=== PATIENT | male | born 1945 | race Caucasian/White ===

== ENCOUNTER 2021-03-26 13:15 | Emergency (ER) | payer MEDICARE, BC ==
[~2021-03-26] VITALS: Ht 180.3 cm; Wt 89.8 kg
[2021-03-26] MEDS ORDERED: LISINOPRIL-HCT1 EACH PO (13:23)
[2021-03-26] MEDS ORDERED: HYDROCODON-ACE1 EA11 PO (15:01)
== END 2021-03-26 15:15 | disposition home or self-care (01) ==
LOC: ED 13:15
DX: S22.42XA Multiple fractures of ribs, left side, initial encounter for closed fracture (principal); W01.10XA Fall on same level from slipping, tripping and stumbling with subsequent striking against unspecified object, initial encounter; Z87.891 Personal history of nicotine dependence; Z88.5 Allergy status to narcotic agent; Z79.899 Other long term (current) drug therapy
CPT/HCPCS: 71101; 99283-25

== ENCOUNTER 2021-06-21 07:10 | Emergency (ER) | payer MEDICARE ==
[~2021-06-21] VITALS: Ht 180.3 cm; Wt 87.1 kg
[~2021-06-21 07:10] MED LIST: HYDROCODON-ACE1 EA11 PO; LISINOPRIL-HCT1 EACH PO
[2021-06-21] MEDS ORDERED: ONDANSETRON ODT8 MG PO (08:01)
[2021-06-21] MEDS ORDERED: LOMOTIL TABLET1 EACH PO (08:01)
== END 2021-06-21 08:15 | disposition home or self-care (01) ==
LOC: ED 07:10
DX: K52.9 Noninfective gastroenteritis and colitis, unspecified (principal); Z20.822 Contact with and (suspected) exposure to COVID-19; I10 Essential (primary) hypertension; Z87.891 Personal history of nicotine dependence; Z88.5 Allergy status to narcotic agent; Z79.899 Other long term (current) drug therapy
CPT/HCPCS: 99283; U0003

== ENCOUNTER 2022-12-15 12:04 | Emergency (ER) | payer OTHER, MEDICARE ==
[~2022-12-15] VITALS: Ht 180.3 cm; Wt 82.5 kg
[~2022-12-15 12:04] MED LIST changes: +LOMOTIL TABLET1 EACH PO; +ONDANSETRON ODT8 MG PO
[2022-12-15] MEDS ORDERED: HYDROCODON-ACE1 EA11 PO (13:40)
== END 2022-12-15 14:12 | disposition home or self-care (01) ==
LOC: ED 12:04
DX: S22.32XA Fracture of one rib, left side, initial encounter for closed fracture (principal); S01.111A Laceration without foreign body of right eyelid and periocular area, initial encounter; I10 Essential (primary) hypertension; Z87.891 Personal history of nicotine dependence; Z88.5 Allergy status to narcotic agent; Z79.899 Other long term (current) drug therapy; W10.8XXA Fall (on) (from) other stairs and steps, initial encounter
CPT/HCPCS: 12013; 71101; 99283-25; A9270

== ENCOUNTER 2023-06-26 19:59 | Emergency (ER) | payer MEDICARE ==
[~2023-06-26] VITALS: Ht 180.3 cm; Wt 86.2 kg
--- OUTSIDE RECORDS SUMMARY | ~2023-06-26 | XMS | Continuity of Care Document ---
Demographics + + + | Address | [address] | | | [place] [address] | + + + | Preferred Language | Unknown | + + + | Marital Status | | + + + | Mormon Affiliation | Unknown | + + + | Race | White | + + + | Ethnic Group | Not or | + + + Author + + + | Author | [facility] | + + + | Organization | [facility] | + + + | Address | [address] | | | [place] [address] | + + + | Phone | | + + + Care Team Providers + + + + | Care Operating Room Aide Name | Role | Phone | + + + + Unavailable | Unavailable | + + + + Unavailable | Unavailable | + + + + Unavailable | Unavailable | + + + + Allergies and Intolerances + + + + + + | date | description | facility | reaction | severity | + + + + + + | (no date) | Mild | [facility] | (no reaction) | (no severity) | | | | [facility] | | | + + + + + + | (no date) | Codeine | [facility] | (no reaction) | (no severity) | | | | [facility] | | | + + + + + + | (no date) | Codeine | [facility] | (no reaction) | (no severity) | | | | [facility] | | | + + + + + + | (no date) | Itching | [facility] | (no reaction) | (no severity) | | | | [facility] | | | + + + + + + | (no date) | Codeine | [facility] | (no reaction) | (no severity) | | | | [facility] | | | + + + + + + Encounters No information. Functional Status No information. Immunizations No information. Medications + + + + | date | description | facility | + + + + | 2021-06-21 00:00 | DIPHENOXYLATE HCL/ATROPINE | [facility] | | | | | + + + + | 2021-06-21 00:00 | DIPHENOXYLATE HCL/ATROPINE | [facility] | | | | | + + + + | 2022-12-15 00:00 | | [facility] | | | LISINOPRIL/HYDROCHLOROTHIAZ | | | | MANDEEP | | + + + + | 2022-12-22 00:00 | | [facility] | | | LISINOPRIL/HYDROCHLOROTHIAZ | | | | MANDEEP | | + + + + | 2021-06-21 00:00 | ONDANSETRON | [facility] | + + + + | 2021-06-21 00:00 | ONDANSETRON | [facility] | + + + + | 2021-03-26 00:00 | HYDROCODONE | [facility] | | | BIT/ACETAMINOPHEN | | + + + + | 2021-03-26 00:00 | HYDROCODONE | [facility] | | | BIT/ACETAMINOPHEN | | + + + + | 2022-12-15 00:00 | HYDROCODONE | [facility] | | | BIT/ACETAMINOPHEN | | + + + + | 2022-12-15 00:00 | HYDROCODONE | [facility] | | | BIT/ACETAMINOPHEN | | + + + + Problems + + + + | date | description | facility | + + + + | 2021-06-21 00:00 | Acute gastroenteritis | [facility] | + + + + | 2021-06-21 00:00 | Acute gastroenteritis | [facility] | + + + + | 2022-12-15 00:00 | Facial laceration | [facility] | + + + + | 2022-12-15 00:00 | Facial laceration | [facility] | + + + + | 2022-12-15 00:00 | Fracture of rib of left | [facility] | | | side | | + + + + | 2022-12-15 00:00 | Fracture of rib of left | [facility] | | | side | | + + + + | 2022-12-15 00:00 | Fall | [facility] | + + + + | 2022-12-15 00:00 | Fall | [facility] | + + + + | 2022-12-22 00:00 | Encounter for removal of | [facility] | | | sutures | | + + + + Procedures No information. Results/Labs No information. Social History No information. Vital Signs + + + +---------+ | date | measurement | value | units | + + + +---------+ | 2022-12-15 00:00 | BMI | 25.4 | kg/m2 | + + + +---------+ | 2022-12-15 00:00 | BP_diastolic | 98 | mmHg | + + + +---------+ | 2022-12-15 00:00 | BP_systolic | 148 | mmHg | + + + +---------+ | 2022-12-15 00:00 | heart_rate | 72 | /min | + + + +---------+ | 2022-12-15 00:00 | height_metric | 180.34 | cm | + + + +---------+ | 2022-12-15 00:00 | height_standard | 71 | in | + + + +---------+ | 2022-12-15 00:00 | o2_saturation | 98 | % | + + + +---------+ | 2022-12-15 00:00 | respiration_rate | 14 | /min | + + + +---------+ | 2022-12-15 00:00 | temperature_metric | 36.67 | C | | | | | | + + + +---------+ | 2022-12-15 00:00 | | 98 | F | | | temperature_standar | | | | | d | | | + + + +---------+ | 2022-12-15 00:00 | weight_metric | 82.55 | kg | + + + +---------+ | 2022-12-15 00:00 | weight_standard | 181.99 | lb | + + + +---------+ | 2022-12-15 00:00 | weight_standard | 182 | lb | + + + +---------+"
--- OUTSIDE RECORDS SUMMARY | ~2023-06-26 | XMS | Continuity of Care Document ---
Demographics + + + | Address | [address] | | | [place] [address] | + + + | Preferred Language | Unknown | + + + | Marital Status | | + + + | Methodist Affiliation | Unknown | + + + | Race | White | + + + | Ethnic Group | Not or | + + + Author + + + | Author | [facility] | + + + | Organization | [facility] | + + + | Address | [address] | | | [place] [address] | + + + | Phone | | + + + Care Team Providers + + + + | Care Electron Microprobe Operator Name | Role | Phone | + [...] 2021-06-21 00:00 | DIPHENOXYLATE HCL/ATROPINE | [facility] | | | | | + + + + | 2021-06-21 00:00 | DIPHENOXYLATE HCL/ATROPINE | [facility] | | | | | + + + + | 2022-12-15 00:00 | | [facility] | | | LISINOPRIL/HYDROCHLOROTHIAZ | | | | MANDEEP | | + + + + | 2022-12-22 00:00 | | [facility] | | | LISINOPRIL/HYDROCHLOROTHIAZ | | | | MANDEEP | | + + + + | 2021-06-21 00:00 | ONDANSETRON | [facility] | + + + + | 2021-06-21 00:00 | ONDANSETRON | [facility] | + + + + | 2021-03-26 00:00 | HYDROCODONE | [facility] | | | BIT/ACETAMINOPHEN | | + + + + | 2021-03-26 00:00 | HYDROCODONE | [facility] | | | BIT/ACETAMINOPHEN | | + + + + | 2022-12-15 00:00 | HYDROCODONE | [facility] | | | BIT/ACETAMINOPHEN | | + + + + | 2022-12-15 00:00 | HYDROCODONE | [facility] | | | BIT/ACETAMINOPHEN | | + + + + Problems + + + + | date | description | facility | + + + + | 2021-06-21 00:00 | Acute gastroenteritis | [facility] | + + + + | 2021-06-21 00:00 | Acute gastroenteritis | [facility] | + + + + | 2022-12-15 00:00 | Facial laceration | [facility] | + + + + | 2022-12-15 00:00 | Facial laceration | [facility] | + + + + | 2022-12-15 00:00 | Fracture of rib of left | [facility] | | | side | | + + + + | 2022-12-15 00:00 | Fracture of rib of left | [facility] | | | side | | + + + + | 2022-12-15 00:00 | Fall | [facility] | + + + + | 2022-12-15 00:00 | Fall | [facility] | + + + + | 2022-12-22 00:00 | Encounter for removal of | [facility] | | | sutures | | + [...]
[2023-06-26] MEDS ORDERED: CEPHALEXIN500 M1 PO (21:28)
[2023-06-26 21:53] VITALS: BP 130/69
== END 2023-06-26 21:50 | disposition home or self-care (01) ==
LOC: ED 19:59
DX: S81.012A Laceration without foreign body, left knee, initial encounter (principal); W26.8XXA Contact with other sharp object(s), not elsewhere classified, initial encounter; I10 Essential (primary) hypertension; Z23 Encounter for immunization; Z87.891 Personal history of nicotine dependence; Z88.5 Allergy status to narcotic agent; Z79.899 Other long term (current) drug therapy
CPT/HCPCS: 90715; A9270